=== PATIENT | female | born 1995 | race Caucasian/White ===

== ENCOUNTER 2023-01-27 07:15 | Outpatient (CLI) | payer BC | END 2023-01-27 07:16 | disposition home or self-care (01) | LOC: ULT 07:15 | PROVIDERS: ATTEND Nurse Practitioner Family | DX: N39.0 Urinary tract infection, site not specified (principal) | CPT/HCPCS: 76705; 76856 ==

== ENCOUNTER 2023-05-31 20:27 | Emergency (ER) | payer BC | END 2023-05-31 20:55 | disposition left against medical advice (07) | LOC: ERS 20:27 | DX: Z53.21 Procedure and treatment not carried out due to patient leaving prior to being seen by health care provider (principal) ==